=== PATIENT | female | born 1980 | race Two or more races ===

== ENCOUNTER 2019-10-05 15:30 | Outpatient (AMBR) | payer MEDICAID, SELFPAY ==
--- NOTE | 2019-09-30 12:39 | PTNOTE_ITS ---
PT OP Initial Eval Patient Information Visit Reasons: Trochanteric bursitis Medical Diagnosis: M70.62 Treatment Dx #1: Left Hip Pain Start of Care: 09/30/19 Initial Assessment Subjective Pt is a 39 y/o female c/o left lateral hip pain started in February after she slipped and fell off ladder. Pt mention that she rolled her left ankle and whole leg went inwards. Pt's recent L/S MRI came back negative. No imaging done on the hip yet. Pt has difficulty climbing ladder. 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 Objective Left Hip AROM: all motions are WFL with end range pain in flexion and abduction Left Hip MMTs Glute Med: 3/5 Glute Max: 3/5 Special Test (+) CHAS's (+) Clement's Palpation: TTP TFL and IT band to mid shaft of femur; equal PSIS Assessment Pt demonstrate left lateral hip pain consistent with TFL and IT band involvement secondary to fall incident leading to decline function. Pt will benefit from physical therapy to increase strength, work on TFL soft tissue, and hip mobility. 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
--- NOTE | 2019-10-05 16:04 | PT.ODAYNRPT ---
PT Outpatient Daily Note Date of Service: October 05, 2019 OP Daily Note Visit Reasons: Trochanteric bursitis Outpatient Physical Therapy Treatment Date: 10/05/19 Subjective: pt states she very little pain upon visit. Objective: see flow sheet. Assessment: placed hot pack prior to ther ex on her L hip. pt was uncomfortable with the bike so switched to the scifit. no excessive weight shifting during step up on the stair case. she is able to step with normal pattern. noted pt has medial collapse of the knees during FWD lunges on the stair case. cued pt and demonstrated the correct knee placement in which she understood but not able to correct. she needs more practice and strengthening as that is also weakness of the LE. Plan: continue POC per PT. Length of Time (minutes) of Treatment: 30 Minutes Office Procedures PT Procedures PT Date of Service: 10/05/19 Therapeutic Exercise 30 minutes: Yes PT Procedures PT Date of Service: 09/30/19 OP PT Eval Mod Complex 30 minutes: Yes
== END 2019-10-05 16:05 | disposition home or self-care (01) ==
PROVIDERS: PCP Family Medicine; Referring Provider Family Medicine; Visit Provider Orthopaedic Surgery
DX: M70.62 Trochanteric bursitis, left hip (principal); M25.552 Pain in left hip; R26.2 Difficulty in walking, not elsewhere classified
CPT/HCPCS: 97110; 97162

== ENCOUNTER → 2024-11-30 | Outpatient (CLI) | payer MEDICAID, SELFPAY ==
--- NOTE | 2024-11-30 08:30 | XR_ITS ---
Examination: Breast ultrasound, unilateral, left complete Date and time of exam: November 30, 2024 0839 hours INDICATIONS: Mammogram September 24, 2024 15 mm focal asymmetry upper outer left breast Technique: Real-time lujan scale ultrasonographic imaging performed left breast including all 4 quadrants as well as nipple retroareolar and axillary region. Findings: 12:00 cyst 6 x 4 mm No solid nodules IMPRESSION: BI-RADS Category 2: Benign findings
--- NOTE | 2024-11-30 09:00 | XR_ITS ---
Examination: Diagnostic digital mammography, unilateral, left Computer aided detection 3-D breast Tomosynthesis, unilateral Date and time of exam: November 30, 2024 0827 hours INDICATIONS: Mammogram September 24, 2024 15 mm focal asymmetry upper outer left breast Technique: Nonmagnified MLO, CC views of the left breast have been obtained, reconstructed from 3-D Tomosynthesis images. R2 computer aided detection program utilized for evaluation of suspicious masses and/or abnormal calcifications. 3-D Tomosynthesis images obtained. Findings: The breast is heterogeneously dense, which may obscure small masses No suspicious mass is confirmed on the spot compression views Impression: BI-RADS category 2: Benign findings Return to yearly follow-up mammography
== END | disposition home or self-care (01) ==
PROVIDERS: PCP Nurse Practitioner Family; Referring Provider Nurse Practitioner Family; Visit Provider Nurse Practitioner Family
DX: R92.322 Mammographic fibroglandular density, left breast (principal); N60.02 Solitary cyst of left breast
CPT/HCPCS: 76641; 77061; 77065; G0279

== ENCOUNTER → 2024-12-07 | Outpatient (BNVA) | payer MEDICAID, SELFPAY | END | disposition home or self-care (01) | PROVIDERS: PCP Nurse Practitioner Family; Referring Provider Nurse Practitioner Family; Visit Provider Nurse Practitioner Family | DX: Z71.2 Person consulting for explanation of examination or test findings (principal) | CPT/HCPCS: 99212; G0463 ==

== ENCOUNTER → 2024-12-08 | Outpatient (CLI) | payer MEDICAID, SELFPAY ==
--- NOTE | 2024-12-08 14:00 | XR_ITS ---
Examination: MRI brain without intravenous contrast. Date and time of exam: December 08, 2024 1412 hours INDICATIONS: Intractable headaches with memory loss increasing in severity the last year Technique: Multiple axial and sagittal images of the brain obtained. Siemens high-resolution 1.5 Noemy short bore scanners utilized. Sagittal sections, T1-weighted, TR 500, TE 14, are performed. Axial sections proton-density and T2-weighted have been obtained. Inversion recovery axial images, TR 9, 260, TE 111, TI 2500. Diffusion weighted images, axial sections, TR 4800, TE 128, B value 1000 Axial sections, ADC map, TR 4800, TE 128 Findings: Enlargement of the sella turcica is not present. The optic chiasm and infundibular are not remarkable. Prepontine and interpeduncular cisterns are not enlarged. There is no localized enlargement of the medulla or amaris. Fourth ventricle and cerebellar tonsils appear normal in position. No subacute area of hemorrhage density is seen. Mass in the cerebellopontine angle region is not evident. Globes symmetrical. Orbital musculature including medial lateral rectus muscles do not exhibit abnormality. Diffusion-weighted images demonstrate no focus of restricted diffusion. Increased white matter signal not seen Mass effect upon the ventricular system is not identified. Impression: Negative for acute hemorrhage, mass effect or midline shift No acute infarct No lumbar findings diagnostic for demyelinating disease
== END | disposition home or self-care (01) ==
LOC: SMRI 13:40
PROVIDERS: PCP Nurse Practitioner Family; Referring Provider Nurse Practitioner Family; Visit Provider Nurse Practitioner Family
DX: G43.919 Migraine, unspecified, intractable, without status migrainosus (principal)
CPT/HCPCS: 70551

== ENCOUNTER → 2024-12-15 | Outpatient (BNVA) | payer MEDICAID, SELFPAY | END | disposition home or self-care (01) | PROVIDERS: PCP Nurse Practitioner Family; Referring Provider Nurse Practitioner Family; Visit Provider Nurse Practitioner Family | DX: Z71.2 Person consulting for explanation of examination or test findings (principal); G43.919 Migraine, unspecified, intractable, without status migrainosus; F32.1 Major depressive disorder, single episode, moderate; F51.05 Insomnia due to other mental disorder; F40.9 Phobic anxiety disorder, unspecified | CPT/HCPCS: 99213 ==

== ENCOUNTER → 2025-03-30 | Outpatient (BNVA) | payer MEDICAID, SELFPAY | END | disposition home or self-care (01) | PROVIDERS: PCP Nurse Practitioner Family; Referring Provider Nurse Practitioner Family; Visit Provider Nurse Practitioner Family | DX: N92.6 Irregular menstruation, unspecified (principal); F32.1 Major depressive disorder, single episode, moderate; G43.919 Migraine, unspecified, intractable, without status migrainosus; G47.00 Insomnia, unspecified; F41.9 Anxiety disorder, unspecified; F40.9 Phobic anxiety disorder, unspecified | CPT/HCPCS: 99213 ==

== ENCOUNTER → 2025-04-06 | Outpatient (BNVA) | payer MEDICAID, SELFPAY | END | disposition home or self-care (01) | PROVIDERS: PCP Nurse Practitioner Family; Referring Provider Nurse Practitioner Family; Visit Provider Nurse Practitioner Family | DX: Z12.4 Encounter for screening for malignant neoplasm of cervix (principal); Z11.3 Encounter for screening for infections with a predominantly sexual mode of transmission ==

== ENCOUNTER → 2025-04-15 | Outpatient (BNVA) | payer MEDICAID, SELFPAY | END | disposition home or self-care (01) | PROVIDERS: PCP Nurse Practitioner Primary Care; Referring Provider Nurse Practitioner Primary Care; Visit Provider Nurse Practitioner Primary Care | DX: Z71.2 Person consulting for explanation of examination or test findings (principal); N92.6 Irregular menstruation, unspecified; E78.5 Hyperlipidemia, unspecified; E55.9 Vitamin D deficiency, unspecified; N95.9 Unspecified menopausal and perimenopausal disorder | CPT/HCPCS: 99213 ==

== ENCOUNTER → 2025-04-16 | Outpatient (BNVA) | payer MEDICAID, SELFPAY | END | disposition home or self-care (01) | PROVIDERS: PCP Nurse Practitioner Family; Referring Provider Nurse Practitioner Family; Visit Provider Nurse Practitioner Family | DX: E78.5 Hyperlipidemia, unspecified (principal); Z71.2 Person consulting for explanation of examination or test findings; N92.6 Irregular menstruation, unspecified; E55.9 Vitamin D deficiency, unspecified; N95.9 Unspecified menopausal and perimenopausal disorder | CPT/HCPCS: 99212; G0463 ==

== ENCOUNTER → 2025-04-27 | Outpatient (BNVA) | payer MEDICAID, SELFPAY | END | disposition home or self-care (01) | PROVIDERS: PCP Nurse Practitioner Family; Referring Provider Nurse Practitioner Family; Visit Provider Nurse Practitioner Family | DX: G43.919 Migraine, unspecified, intractable, without status migrainosus (principal); F41.9 Anxiety disorder, unspecified; F32.1 Major depressive disorder, single episode, moderate | CPT/HCPCS: 99213 ==

== ENCOUNTER → 2025-05-24 | Outpatient (BNVA) | payer MEDICAID, SELFPAY | END | disposition home or self-care (01) | PROVIDERS: PCP Nurse Practitioner Family; Referring Provider Nurse Practitioner Family; Visit Provider Nurse Practitioner Family | DX: Z71.2 Person consulting for explanation of examination or test findings (principal); E78.5 Hyperlipidemia, unspecified | CPT/HCPCS: 99212; G0463 ==

== ENCOUNTER → 2025-05-27 | Outpatient (BNVA) | payer MEDICAID, SELFPAY | END | disposition home or self-care (01) | PROVIDERS: PCP Nurse Practitioner Family; Referring Provider Nurse Practitioner Family; Visit Provider Nurse Practitioner Family | DX: E03.9 Hypothyroidism, unspecified (principal) | CPT/HCPCS: 99212; G0463 ==

== ENCOUNTER → 2025-06-28 | Outpatient (BNVA) | payer MEDICAID, SELFPAY | END | disposition home or self-care (01) | PROVIDERS: PCP Nurse Practitioner Family; Referring Provider Nurse Practitioner Family; Visit Provider Nurse Practitioner Family | DX: Z71.2 Person consulting for explanation of examination or test findings (principal); E78.5 Hyperlipidemia, unspecified | CPT/HCPCS: 99212; G0463 ==

== ENCOUNTER → 2025-07-28 | Outpatient (BNVA) | payer MEDICAID, SELFPAY | END | disposition home or self-care (01) | PROVIDERS: PCP Nurse Practitioner Family; Referring Provider Nurse Practitioner Family; Visit Provider Nurse Practitioner Family | DX: F32.9 Major depressive disorder, single episode, unspecified (principal); Z23 Encounter for immunization | CPT/HCPCS: 90471; 90715; 99213 ==

== ENCOUNTER → 2025-08-26 | Outpatient (BNVA) | payer MEDICAID, SELFPAY | END | disposition home or self-care (01) | PROVIDERS: PCP Nurse Practitioner Family; Referring Provider Nurse Practitioner Family; Visit Provider Nurse Practitioner Family | DX: E03.9 Hypothyroidism, unspecified (principal); Z23 Encounter for immunization; M51.34 Other intervertebral disc degeneration, thoracic region; Z76.0 Encounter for issue of repeat prescription | CPT/HCPCS: 90471; 90686; 99213 ==

== ENCOUNTER → 2025-09-07 | Outpatient (BNVA) | payer MEDICAID, SELFPAY | END | disposition home or self-care (01) | PROVIDERS: PCP Nurse Practitioner Family; Referring Provider Nurse Practitioner Family; Visit Provider Nurse Practitioner Family | DX: M51.34 Other intervertebral disc degeneration, thoracic region (principal); M54.2 Cervicalgia | CPT/HCPCS: 99213 ==

== ENCOUNTER 2025-09-09 08:30 | Outpatient (RCR) | payer MEDICAID, SELFPAY ==
--- NOTE | 2025-09-01 10:36 | PT.OIERPT ---
PT OP Initial Eval Patient Information Outpatient Physical Therapy Treatment Date: 09/01/25 Medical Diagnosis: M54.2 M54.6 G89.29 M25.511 M25.512 Treatment Dx #1: pain in T/S Start of Care: 09/01/25 Date of Onset: 1 yr ago Smoking Status Smoking Status: Never smoker Initial Assessment Subjective: Pt is 45 yr old divehi speaking female who c/o mid back pain x1 yr. 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 She denies neck pain and shoulder pain. The pain interrupts sleep. PMH: hyperlipidemia, hypothyroidism, migraine headaches, and moderate depression/anxiety Imaging: Xray of T/S in EMR Mild diffuse thoracic degenerative disc disease Pt goal: to get rid of the pain Objective: T/S AROM: Flexion: 20% of full with pain Extension: 20% with pain Rotation: 40% B with pain TTP: high of thoracic paraspinals from T4-10 Assessment: Pt presents with high TTP of thoracic paraspinals and decreased ROM consistent with degenerative changes. Pt requires skilled therapy and has fair rehab potential to meet goals. Short Term and Shelter Goals 1. Ind with HEP 2. Decreased TTP of thoracic paraspinals from high to min 3. Pt will tolerate work duties x4 hours with <=3/10 back pain 4. Improved thoracic rotation to at least 60% of full Treatment Plan ? 1. Manual therapy ? 2. Therex ? 3. Modalities as indicated, moist heat, ice, estim Frequency and Duration: 2x a week for 12 sessions plus the evaluation Certification Dates: 09/01/25 to 11/30/25 Procedure Charges OP PT Eval Mod Complex 30 minutes: Yes
--- NOTE | 2025-09-07 09:22 | PT.ODAYNRPT ---
PT Outpatient Daily Note OP Daily Note Outpatient Physical Therapy Treatment Date: 09/07/25 Subjective: Same as time of evaluation Objective: See f/S for therex MT: STM T/S with flexbar x7' MHP x5' T/S Assessment: High TTP of T/S with light pressure during manual therapy Plan: Continue per POC Length of Time (minutes) of Treatment: 30 Minutes Procedure Charges Therapeutic Exercise 30 minutes: Yes
--- NOTE | 2025-09-09 09:40 | PT.ODAYNRPT ---
PT Outpatient Daily Note OP Daily Note Outpatient Physical Therapy Treatment Date: 09/09/25 Visit Reasons: neck pain Subjective: Pt reports back pain relief after last visit Objective: See f/S for therex MT: STM T/S with Rosa x7' MHP x5' T/S Assessment: Moderate to High TTP of T/S with light pressure during manual therapy Plan: Continue per POC Length of Time (minutes) of Treatment: 30 Minutes Procedure Charges Therapeutic Exercise 30 minutes: Yes
== END 2025-09-10 23:59 | disposition home or self-care (01) ==
LOC: CPTX 08:30
PROVIDERS: PCP Nurse Practitioner Family; Referring Provider Nurse Practitioner Family; Visit Provider Nurse Practitioner Family
DX: M54.2 Cervicalgia (principal); M54.6 Pain in thoracic spine; G89.29 Other chronic pain; M25.511 Pain in right shoulder; M25.512 Pain in left shoulder
CPT/HCPCS: 97110; 97162

== ENCOUNTER 2025-09-15 09:00 | Outpatient (RCR) | payer MEDICAID, SELFPAY ==
--- NOTE | 2025-09-13 10:25 | PT.ODAYNRPT ---
PT Outpatient Daily Note OP Daily Note Outpatient Physical Therapy Treatment Date: 09/13/25 Subjective: Pt reports back pain relief after last visit Objective: See f/S for therex MT: STM T/S with Rosa x7' MHP x5' T/S Assessment: Slow progress with goals due to moderate to High TTP of T/S with light pressure during manual therapy Plan: Continue per POC Length of Time (minutes) of Treatment: 30 Minutes Procedure Charges Therapeutic Exercise 30 minutes: Yes
--- NOTE | 2025-09-15 09:48 | PT.ODS1RPT ---
PT OP Progress/Discharge Note Date of Service: 09/15/25 Progress Note/DC Note Progress Note/Discharge Note: DC Note Patient Information Visit Reasons: neck pain Service Continue Service or Discharge: Discharge Discharge Date: 09/15/25 Status Subjective: Continued high level of back pain worse after therapy visits. The pain interrupts sleep and HH chore tolerances. Objective: TTP: high of T/S paraspinals T/S AROM: Flexion: 20% of full Extension: 20% with back pain Rotation: 40% of full B Assessment: Pt has attended the eval and 4 Rx visits with limited progress with therapy goals due to continued intense pain of T/S that is worse after therapy visits. This is consistent with thoracic vertebral osteophytes seen on Xray. She is not making progress with goals. PT recommends further diagnostic imaging if needed and orthopedic evaluation. Thank you for your referrals. Pt is doing HEP and bought an exercise ball and foam roller. Plan: D/C with HEP. Procedure Charges Therapeutic Exercise 30 minutes: Yes
== END 2025-10-10 23:59 | disposition home or self-care (01) ==
LOC: CPTX 09:00
PROVIDERS: PCP Nurse Practitioner Family; Referring Provider Nurse Practitioner Family; Visit Provider Nurse Practitioner Family
DX: M54.6 Pain in thoracic spine (principal); M54.2 Cervicalgia; M25.511 Pain in right shoulder; M25.512 Pain in left shoulder; G89.29 Other chronic pain
CPT/HCPCS: 97110

== ENCOUNTER → 2025-09-23 | Outpatient (BNVA) | payer MEDICAID, SELFPAY | END | disposition home or self-care (01) | PROVIDERS: PCP Nurse Practitioner Family; Referring Provider Nurse Practitioner Family; Visit Provider Nurse Practitioner Family | DX: M51.34 Other intervertebral disc degeneration, thoracic region (principal); Z12.39 Encounter for other screening for malignant neoplasm of breast; M54.2 Cervicalgia | CPT/HCPCS: 99213 ==

== ENCOUNTER → 2025-09-27 | Outpatient (CLI) | payer MEDICAID, SELFPAY ==
--- NOTE | 2025-09-27 09:15 | XR_ITS ---
Examination: Screening digital mammography, bilateral Computer aided detection 3-D breast Tomosynthesis, bilateral Date and time of exam: September 27, 2025, 0917 hours, compared to mammograms dating to September 03, 2023 Indication: Screening Technique: Nonmagnified MLO, CC views of the breasts to been obtained, reconstructed from 3-D Tomosynthesis images. R2 computer aided detection program utilized for evaluation of suspicious masses and/or abnormal calcifications. 3-D Tomosynthesis images obtained. Findings: The breasts are heterogeneously dense, which may obscure small masses Benign calcifications. No interval suspicious masses Impression: BI-RADS category II: Benign Findings. Recommend 1 year follow-up mammogram.
== END | disposition home or self-care (01) ==
PROVIDERS: PCP Nurse Practitioner Family; Referring Provider Nurse Practitioner Family; Visit Provider Nurse Practitioner Family
DX: Z12.31 Encounter for screening mammogram for malignant neoplasm of breast (principal); R92.323 Mammographic fibroglandular density, bilateral breasts; R92.1 Mammographic calcification found on diagnostic imaging of breast
CPT/HCPCS: 77063; 77067

== ENCOUNTER → 2025-09-28 | Outpatient (BNVA) | payer MEDICAID, SELFPAY | END | disposition home or self-care (01) | PROVIDERS: PCP Nurse Practitioner Family; Referring Provider Nurse Practitioner Family; Visit Provider Nurse Practitioner Family | DX: E03.9 Hypothyroidism, unspecified (principal); E78.5 Hyperlipidemia, unspecified ==

== ENCOUNTER → 2025-10-05 | Outpatient (BNVA) | payer MEDICAID, SELFPAY | END | disposition home or self-care (01) | PROVIDERS: PCP Nurse Practitioner Family; Referring Provider Nurse Practitioner Family; Visit Provider Nurse Practitioner Family | DX: Z71.2 Person consulting for explanation of examination or test findings (principal); M54.2 Cervicalgia; E78.5 Hyperlipidemia, unspecified; E03.9 Hypothyroidism, unspecified; M51.34 Other intervertebral disc degeneration, thoracic region | CPT/HCPCS: 99214 ==

== ENCOUNTER → 2025-10-27 | Outpatient (BNVA) | payer MEDICAID, SELFPAY | END | disposition home or self-care (01) | PROVIDERS: PCP Nurse Practitioner Family; Referring Provider Nurse Practitioner Family; Visit Provider Nurse Practitioner Family | DX: Z71.2 Person consulting for explanation of examination or test findings (principal); Z12.39 Encounter for other screening for malignant neoplasm of breast | CPT/HCPCS: 99212; G0463 ==